=== PATIENT | male | born 1940 | race Caucasian/White ===

== ENCOUNTER 2016-12-08 19:26 | Inpatient (IN) | payer OTHER ==
[2016-12-08] MEDS ORDERED: NS 1,000 ML IV ONE ×2 (19:47→21:03)
--- NOTE | 2016-12-08 19:51 | EDPHY ---
HPI/HX/ROS/PE/MDM Narrative: Chief complaint: Weakness, fall HPI: 76-year-old male who fell at home in the bathroom. Was unable to get up for several hours. He does not recall how he fell. Denies hitting his head. Does remember lying on the floor. His attempted to get him up unable to do so. EMS was called. He is awake and alert. Complaining of generalized weakness. Denies any recent fever chills. No chest pain shortness of breath. No nausea or vomiting. States he has a past medical history of diabetes but has not been taking medications for the last couple months because he felt the were not helping him. Denies other past medical problems. Ill is with his in a single family residence in the [facility]. ROS: 10 point Review of Systems is negative except as noted in the HPI. Physical exam: Gen: Awake, Alert, No Distress HEENT: Nose: no rhinorrhea Eyes: PERRLA, EOMI Mouth: Dry mucosa Neck: Supple, no JVD Chest: nontender, lungs clear to auscultation Heart: S1, S2 normal, no murmur Abd: Soft, non-tender, no guarding Back: no CVA tenderness, no midline tenderness Ext: no edema, non-tender Skin: no rash Neuro: CN II-XII intact, Sensation grossly intact, Strength 5/5 in bilateral upper and lower extremities ED Course: EC sinus rhythm with a rate of 80, normal intervals, no ST or T-wave changes. Patient's laboratory no. He is hypercalcemic, hypernatremic, is acute renal failure in clinically dehydrated. No acute changes in ECG. Urinalysis is suggestive of possible infection however is not dramatic. Cultures will be sent. I have discussed with Dr. Torres, hospitalist. Plan will be for continued hydration. Patient is already receiving a L fluid in the emergency department. Will admit to Dr. Torres service for further care. - Data Points Laboratory Results: Laboratory Results 12/08/16 19:15 12/08/16 19:15 12/08/16 12/08/16 20:10 19:15 WBC 13.56 H 10^3/uL (3.80-9.50) RBC 5.79 10^6/uL (4.40-6.38) Hgb 18.6 H g/dL (13.7-17.5) Hct 55.5 H % (40.0-51.0) MCV 95.9 fL (81.5-99.8) MCH 32.1 pg (27.9-34.1) MCHC 33.5 g/dL (32.4-36.7) RDW 13.2 % (11.5-15.2) Plt Count 317 10^3/uL (150-400) MPV 12.5 H fL (8.7-11.7) Neut % (Auto) 71.9 % (39.3-74.2) Lymph % (Auto) 18.2 % (15.0-45.0) [place]oun % (Auto) 8.0 % (4.5-13.0) Eos % (Auto) 1.3 % (0.6-7.6) Baso % (Auto) 0.4 % (0.3-1.7) Nucleat RBC Rel Count 0.0 % (0.0-0.2) Absolute Neuts (auto) 9.75 H 10^3/uL (1.70-6.50) Absolute Lymphs (auto) 2.47 10^3/uL (1.00-3.00) Absolute Monos (auto) 1.09 H 10^3/uL (0.30-0.80) Absolute Eos (auto) 0.17 10^3/uL (0.03-0.40) Absolute Basos (auto) 0.05 10^3/uL (0.02-0.10) Absolute Nucleated RBC 0.00 10^3/uL (0-0.01) Immature Gran % 0.2 % (0.0-1.1) Immature Gran # 0.03 10^3/uL (0.00-0.10) Sodium 150 H mEq/L (134-144) Potassium 4.2 mEq/L (3.5-5.2) Chloride 101 mEq/L (97-110) Carbon Dioxide 32 H mEq/l (22-31) Anion Gap 17 H mEq/L (8-16) BUN 57 H mg/dL (7-23) Creatinine 2.6 H mg/dL (0.7-1.3) Estimated GFR 24 Glucose 135 H mg/dL (70-100) Calcium 14.0 H* mg/dL (8.5-10.4) Phosphorus 3.4 mg/dL (2.5-4.5) Total Bilirubin 1.0 mg/dL (0.1-1.4) Conjugated Bilirubin 0.5 mg/dL (0.0-0.5) Unconjugated Bilirubin 0.5 mg/dL (0.0-1.1) AST 61 H IU/L (17-59) ALT 67 IU/L (21-72) Alkaline Phosphatase 126 IU/L (38-126) Creatine Kinase 205 IU/L (0-224) Troponin I 0.024 ng/mL (0-0.034) Total Protein 8.5 H g/dL (6.3-8.2) Albumin 4.6 g/dL (3.5-5.0) Lipase 109.0 IU/L (23-300) Urine Color YELLOW Urine Appearance HAZY Urine pH 5.0 (5.0-7.5) Ur Specific Slick 1.019 (1.002-1.030) Urine Protein NEGATIVE (NEGATIVE) Urine Ketones NEGATIVE (NEGATIVE) Urine Blood 1+ H (NEGATIVE) Urine Nitrate NEGATIVE (NEGATIVE) Urine Bilirubin NEGATIVE (NEGATIVE) Urine Urobilinogen NEGATIVE EU (0.2-1.0) Ur Leukocyte Esterase 1+ H (NEGATIVE) Urine RBC 5-10 H /hpf (0-3) Urine WBC 5-10 H /hpf (0-3) Ur Epithelial Cells TRACE /lpf (NONE-1+) Urine Bacteria TRACE H /hpf (NONE SEEN) Hyaline Casts 5-15 /lpf (0-1) Urine Mucus TRACE /lpf (NONE-1+) Urine Glucose NEGATIVE (NEGATIVE) Medications Given: Discontinued Medications Sodium Chloride (Ns) 1,000 mls @ 0 mls/hr IV ONCE ONE PRN Reason: Wide Open Stop: 12/08/16 19:48 Last Admin: 12/08/16 19:58 Dose: 1,000 mls General Time Seen by Provider: 12/08/16 19:38 Initial Vital Signs: Initial Vital Signs Temperature (C) 36.4 C 12/08/16 19:40 Heart Rate 87 12/08/16 19:40 Respiratory Rate 16 12/08/16 19:40 Blood Pressure 153/79 H 12/08/16 19:40 O2 Sat (%) 94 12/08/16 19:40 O2 Delivery Mode Room Air Allergies/Adverse Reactions: aspirin [Aspirin] Allergy (Verified 05/26/10 15:36) Home Medications: Medication Instructions Recorded Antioxidant k 04/12/13 Atorvastatin k 04/12/13 Dha k 04/12/13 Glucosamine Chondrointin k 04/12/13 Lisinopril k 04/12/13 Metformin k 04/12/13 Multivitamin k 04/12/13 Hydrocodone Bit/Acetaminophen 1 tab PO Q4 PRN #20 tab 08/27/13 [Vicodin 5/500] Departure - Departure Disposition: [facility] Acute Clinical Impression: Dehydration, Hypernatremia, Renal failure, Hypercalcemia Condition: Fair
[2016-12-08 19:52] LABS: % IMMATURE GRANULYOCYTES 0.2 % (0.0-1.1); ABSOLUTE IMMATURE GRANULOCYTES 0.03 10^3/uL (0.00-0.10); ADD DIFF? NO; ADD MORPH? NO; ADD SCAN? NO; ATYPICAL LYMPHOCYTE FLAG 0 (0-99); FRAGMENT RBC FLAG 0 (0-99); HEMATOCRIT 55.5 % (40.0-51.0); HEMOGLOBIN 18.6 g/dL (13.7-17.5); LEFT SHIFT FLG 0 (0-99); LIPEMIA HEMOLYSIS FLAG 80 (0-99); MEAN CELL HEMOGLOBIN 32.1 pg (27.9-34.1); MEAN CELL HEMOGLOBIN CONCENTR. 33.5 g/dL (32.4-36.7); MEAN CELL VOLUME 95.9 fL (81.5-99.8); MEAN PLATELET VOLUME 12.5 fL (8.7-11.7); PLATELET CLUMPS FLAG 10 (0-99); PLATELET COUNT 317 10^3/uL (150-400); RED BLOOD CELL COUNT 5.79 10^6/uL (4.40-6.38); RED CELL DISTRIBUTION WIDTH 13.2 % (11.5-15.2)
[2016-12-08 20:00] LABS: ALANINE AMINOTRANSFERASE 67 IU/L (21-72); ALBUMIN 4.6 g/dL (3.5-5.0); ALKALINE PHOSPHATASE 126 IU/L (38-126); ANION GAP 17 mEq/L (8-16); ASPARTATE AMINOTRANSFERASE 61 IU/L (17-59); BILIRUBIN-CONJUGATED 0.5 mg/dL (0.0-0.5); BILIRUBIN-UNCONJUGATED 0.5 mg/dL (0.0-1.1); CARBON DIOXIDE 32 mEq/l (22-31); CHLORIDE 101 mEq/L (97-110); CREATININE 2.6 mg/dL (0.7-1.3); GLOMERULAR FILTRATION RATE 24; GLUCOSE 135 mg/dL (70-100); POTASSIUM 4.2 mEq/L (3.5-5.2); SODIUM 150 mEq/L (134-144); TOTAL PROTEIN 8.5 g/dL (6.3-8.2)
--- NOTE | 2016-12-08 20:00 | CPEKG ---
Heart Rate: 80 RR Interval: 750 P-R Interval: 192 QRSD Interval: 90 QT Interval: 400 QTC Interval: 462 P [place]: 35 QRS [place]: 47 T Wave [place]: 26 EKG Severity - NORMAL ECG - EKG Impression: SINUS RHYTHM Electronically Signed By: Leonora Russell 08-Dec-2016 20:03:44
[2016-12-08 20:11] LABS: TROPONIN I 0.024 ng/mL (0-0.034)
[2016-12-08 20:22] LABS: COLOR YELLOW; LEUKOCYTE ESTERASE,URINE 1+ (NEGATIVE); NITRITE,URINE NEGATIVE (NEGATIVE)
[2016-12-08 20:25] LABS: BACTERIA TRACE /hpf (NONE SEEN); MUCUS TRACE /lpf (NONE-1+)
--- NOTE | 2016-12-08 21:31 | DX ---
PA and lateral chest. Clinical History: fall Comparison Study: None available. Findings: The lungs are clear. No pleural disease identified. Heart size is normal. Visualized osseous structures appear normal. Impression: Negative trauma chest.
--- NOTE | 2016-12-08 22:20 | PDGENHP ---
History and Physical History and Physical: HISTORY AND PHYSICAL ADMISSION NOTE CC:Weakness, found on floor HISTORY: This patient who lives at home with his in house in the [facility] here was found by his on the floor unable to get up. The patient does not recall how he ended up on the floor. He does not specifically think he lost consciousness but does not have any recollection of the event. He does not feel like he injured himself in any way. He is not certain when he fell but gases it was probably somewhere close to 10 o'clock this morning. His apparently tried to get him up but was unable to get him up off the floor. She called for paramedics and he was brought into the emergency room for evaluation He has no headache, neck pain, pain in the shoulders hips or limbs, back pain, abdominal pain, chest pain. He denies recently any fevers shortness of breath cough palpitations lightheadedness syncope seizure-like symptoms nausea or vomiting, bleeding, urinary symptoms, bowel symptoms, joint pains, leg swelling. 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 Chronic gait instability Diabetes mellitus type 2 Hypercholesterolemia FAMILY MEDICAL HISTORY: no pertinent family medical history at this time SOCIAL HISTORY: No use of tobacco or alcohol or street drugs Declines to use a cane or a walker even though he has had previous fall with hospitalization MEDICATIONS: reviewed by our clinical pharmacist and reconciled in the electronic record, I have reviewed the list in the record PHYSICAL EXAMINATION: Vital Signs: stable without fever Outside Machinist Apprentice: sinus rhythm Examination: General: alert, oriented, mildly disoriented and with some decrease in short- term memory, relaxed Skin: warm, dry, good color, no rash No evidence of injury about the head face neck spine her abdomen HEENT: normal Neck: no mass or jvd Resps: relaxed Lungs: clear breath sounds Heart: regular, no murmur Abdomen: soft, nondistended, nontender, +BS, no mass Extremities: no signs of injury at the hip shoulders or more distally in any of the 4 limbs, otherwise no edema, warm No Bleeding or bruising Neurologic: normal speech/language, normal electrical engineering director, no focal weakness IV site: looks normal LABORATORY DATA: multiple abnormalities all likely indicative of dehydration including sodium calcium creatinine hemoglobin his CPK is normal indicating absence of rhabdomyolysis RADIOLOGY STUDIES: Chest x-ray in the ER, my interpretation images: Normal chest x-ray with no pneumonia heart failure fractures or other concerning change ASSESSMENT: # FOUND DOWN ON FLOOR, UNKNOWN MECHANISM OF FALL, POSSIBLE SYNCOPE VERSUS IS GAIT INSTABILITY # SEVERE DEHYDRATION, MOST HAVE BEEN GOING ON SINCE BEFORE HIS FALL THE TIME BETWEEN HIS FALL AND HIS ARRIVAL HERE IS TOO SHORT TO ACCOUNT FOR THIS # ACUTE RENAL FAILURE, HEMODYNAMIC IN NATURE # HYPERCALCEMIA IS LIKELY DUE TO DEHYDRATION BUT WILL REQUIRE REASSESSMENT AND IF IT REMAINS ELEVATED POSSIBLY FURTHER WORKUP # ELEVATED HEMOGLOBIN AND MILD PYURIA ARE LIKELY DUE TO CHANGES FROM HIS SEVERE DEHYDRATION I strongly suspect that he was dehydrated before his fall and i suspect that his dehydration likely contributed to his fall either from orthostasis or otherwise. How he got dehydrated is unclear to me is he denies any nausea vomiting diarrhea or bleeding, but he is somewhat disoriented and the history may be affected by this PLANS: - admission as he will clearly not be safe to go home within 48 hours so inpatient -Vigorous IV hydration -Follow for correction of laboratory abnormalities and consider further evaluation for any that no cardiac - fall risk precautions, PT and OT eval -DVT prophylaxis I have reviewed the patient's case in detail with Dr. Elver Baig I have reviewed the patient's past medical records as part of this assessment, including records from several previous ER visits here
[2016-12-08] MEDS ORDERED: NS 1,000 ML IV SCH (22:30)
[2016-12-08] MEDS ORDERED: ACETAMINOPHEN 325 MG TAB PO PRN (22:30)
[2016-12-08] MEDS ORDERED: ONDANSETRON 4 MG/2 ML VIAL IVP PRN (22:30)
[2016-12-09 05:27] LABS: % IMMATURE GRANULYOCYTES 0.3 % (0.0-1.1); ABSOLUTE IMMATURE GRANULOCYTES 0.03 10^3/uL (0.00-0.10); ADD DIFF? NO; ADD MORPH? NO; ADD SCAN? NO; ATYPICAL LYMPHOCYTE FLAG 0 (0-99); FRAGMENT RBC FLAG 0 (0-99); HEMATOCRIT 45.6 % (40.0-51.0); HEMOGLOBIN 15.5 g/dL (13.7-17.5); LEFT SHIFT FLG 0 (0-99); LIPEMIA HEMOLYSIS FLAG 90 (0-99); MEAN CELL HEMOGLOBIN 32.3 pg (27.9-34.1); MEAN PLATELET VOLUME 12.3 fL (8.7-11.7); PLATELET CLUMPS FLAG 10 (0-99); PLATELET COUNT 246 10^3/uL (150-400); RED CELL DISTRIBUTION WIDTH 13.1 % (11.5-15.2)
[2016-12-09 05:41] LABS: ALANINE AMINOTRANSFERASE 65 IU/L (21-72); ALBUMIN 3.2 g/dL (3.5-5.0); ALKALINE PHOSPHATASE 89 IU/L (38-126); ANION GAP 9 mEq/L (8-16); ASPARTATE AMINOTRANSFERASE 48 IU/L (17-59); BILIRUBIN,TOTAL 0.7 mg/dL (0.1-1.4); CARBON DIOXIDE 27 mEq/l (22-31); CHLORIDE 112 mEq/L (97-110); CREATININE 2.2 mg/dL (0.7-1.3); GLOMERULAR FILTRATION RATE 29; GLUCOSE 122 mg/dL (70-100); SODIUM 148 mEq/L (134-144); TOTAL PROTEIN 6.1 g/dL (6.3-8.2)
[2016-12-09] MEDS ORDERED: ENOXAPARIN 40 MG/0.4 ML SYR SC SCH (09:00)
--- NOTE | 2016-12-09 09:38 | HOSPPROG ---
Hospitalist Progress Note Assessment/Plan: 68-year-old male who according to his has been declining over the last couple months without more weight loss and perhaps some confusion was found down * hypercalcemia * significant and probably contributing to his presentation * will check PTH, SPEP, PSA * continue hydration * acute renal failure/ possibly chronic * will get renal ultrasound * confusion * suspect baseline dementia worsening in the hospital * history of hypertension * holding erin *? type 2 diabetes * hold metformin * DVT prophylaxis * heparin Subjective: more confused this morning. Fell this morning Objective: Vital Signs Temp Pulse Resp BP Pulse Ox 36.5 C 89 16 124/69 H 96 12/09/16 07:12 12/09/16 07:12 12/09/16 07:12 12/09/16 07:12 12/09/16 07:12 Laboratory Results 12/09/16 04:23 12/09/16 04:23 12/08/16 12/09/16 12/10/16 05:59 05:59 05:59 Intake Total 2100 941 Output Total 100 Balance 2000 941 - Physical Exam Constitutional: no apparent distress, appears nourished, not in pain Eyes: anicteric sclera, EOMI Ears, Nose, Mouth, Throat: moist mucous membranes, hearing normal Cardiovascular: regular rate and rhythym, no murmur, rub, or gallop Respiratory: no respiratory distress Gastrointestinal: normoactive bowel sounds, soft, non-tender abdomen, no palpable masses Neurologic: No AAOx3 Psychiatric: interacting appropriately, not anxious, not encephalopathic, thought process linear ICD10 Worksheet Patient Problems: Problems Problem Status Diagnosed Dehydration Acute Hypercalcemia Acute Hypernatremia Acute Renal failure Acute
[2016-12-09 09:55] LABS: PTH INTACT NO MINERALS 17.8 pg/ml (10.8-79.4)
[2016-12-09] MEDS: ATORVASTATIN CALCIUM 40 MG TAB PO SCH (10:58)
[2016-12-09] MEDS: 1/2 NS 1,000 ML IV SCH ×2 (11:01→14:31)
--- NOTE | 2016-12-09 11:50 | US ---
Renal sonogram, complete. History: Acute renal failure. Findings: The right kidney measures 9.8 x 4.7 x 5 cm without hydronephrosis or mass. Left kidney rickie ures 10 x 4.5 x 5.4 cm also without hydronephrosis or mass. Urinary bladder is moderately distended at 87.5 mL. The prostate appears enlarged, measuring 6.1 x 6. 2 x 4.9 cm, estimating a 97 cc gland. Impression: 1. Enlargement of the prostate. 2. No evidence of hydronephrosis.
[2016-12-09 12:56] LABS: IONIZED CALCIUM 1.63 MMOL/L (1.12-1.30)
[2016-12-09] MEDS: HEPARIN 5,000 UNIT/0.5 ML SYR SC SCH ×2 (16:27→19:39)
[2016-12-09] MEDS ORDERED: OLANZapine 2.5 MG TAB PO ONE (22:56)
[2016-12-10] MEDS: 1/2 NS 1,000 ML IV SCH (00:33)
[2016-12-10] MEDS ORDERED: OLANZapine 2.5 MG TAB PO ONE (03:30)
[2016-12-10 04:38] LABS: IONIZED CALCIUM 1.29 MMOL/L (1.12-1.30)
[2016-12-10 04:57] LABS: % IMMATURE GRANULYOCYTES 0.3 % (0.0-1.1); ABSOLUTE IMMATURE GRANULOCYTES 0.02 10^3/uL (0.00-0.10); ADD DIFF? NO; ADD MORPH? NO; ADD SCAN? NO; ATYPICAL LYMPHOCYTE FLAG 10 (0-99); FRAGMENT RBC FLAG 0 (0-99); HEMATOCRIT 37.8 % (40.0-51.0); HEMOGLOBIN 12.9 g/dL (13.7-17.5); LEFT SHIFT FLG 0 (0-99); LIPEMIA HEMOLYSIS FLAG 90 (0-99); MEAN CELL HEMOGLOBIN 32.3 pg (27.9-34.1); MEAN CELL HEMOGLOBIN CONCENTR. 34.1 g/dL (32.4-36.7); MEAN CELL VOLUME 94.7 fL (81.5-99.8); PLATELET CLUMPS FLAG 40 (0-99); PLATELET COUNT 197 10^3/uL (150-400); RED BLOOD CELL COUNT 3.99 10^6/uL (4.40-6.38)
[2016-12-10 05:04] LABS: ALANINE AMINOTRANSFERASE 76 IU/L (21-72); ALBUMIN 2.7 g/dL (3.5-5.0); ALKALINE PHOSPHATASE 76 IU/L (38-126); ANION GAP 6 mEq/L (8-16); ASPARTATE AMINOTRANSFERASE 44 IU/L (17-59); BILIRUBIN,TOTAL 0.7 mg/dL (0.1-1.4); CALCIUM 9.8 mg/dL (8.5-10.4); CARBON DIOXIDE 26 mEq/l (22-31); CHLORIDE 111 mEq/L (97-110); GLOMERULAR FILTRATION RATE 32; GLUCOSE 97 mg/dL (70-100); POTASSIUM 3.6 mEq/L (3.5-5.2); SODIUM 143 mEq/L (134-144); TOTAL PROTEIN 5.3 g/dL (6.3-8.2)
[2016-12-10] MEDS: HEPARIN 5,000 UNIT/0.5 ML SYR SC SCH ×3 (05:59→20:45)
--- NOTE | 2016-12-10 08:18 | WOCRNPDOC ---
WOCRN Advanced Assessment Note - Skin Integrity Problem, Advanced Assess Buttock Dermatitis Dressing Type: Open to Air Exudate Amount: None Ryann Wound Tissue: Blanching, Erythema Wound Bed Color: [place] Wound Bed Constitution: Smooth Tissue Site Measurement - Head-to-Toe Length X Width X Depth (cm): 1x0.5x0.1 (right buttock) Skin Integrity Problem Comment: Friction injury mixed with dermatitis. Dry flaky skin. No pressure injury. Encourage patient to lift when transferring. Apply 50/50 mix of calazime and dimethicone lotion. Thai FLOWERS in room for care.
[2016-12-10] MEDS: ATORVASTATIN CALCIUM 40 MG TAB PO SCH (09:25)
--- NOTE | 2016-12-10 14:29 | CT ---
CT Head Without Contrast History: Confusion, gait instability. Comparison: None available. Technique: Axial unenhanced images were obtained from the vertex through the skull base. Dose reduct ion techniques were utilized. 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 There i s mild diffuse cerebral atrophy with scattered periventricular and subcortical low attenuation, sugge sting chronic microvascular ischemic gliosis. No intracranial hemorrhage is identified. No extraaxia l fluid collections are identified. There is no mass, mass effect or evidence of acute infarct. Athe rosclerotic calcification is present in the distal internal carotid arteries. Moderate mucous membran e thickening is present in the left maxillary sinus with mild mucous membrane thickening in the ethmo id sinuses. The mastoid air cells are clear. Right parietal calvarial defect suggests prior craniotom y. Impression: 1. No acute intracranial findings. If symptoms persist and clinical suspicion warrants, consider MRI. 2. Right frontal encephalomalacia 3. Diffuse cerebral atrophy with scattered periventricular and subcortical low attenuation consistent with chronic microvascular ischemic gliosis.
--- NOTE | 2016-12-10 14:30 | HOSPPROG ---
Hospitalist Progress Note Assessment/Plan: 76 yo M with limited known pmh presenting with fall and confusion # fall/found down: unclear mechanism of fall but on evaluation patient very weak and confused, has essentially no postural tone in the trunk. Possibly related to syncope versus mechanical fall. # generalized weakness: as above, patient essentially unable to hold his trunk up. Unclear baseline but has been living at home so presumably at least able to do his ADLs. Will w/u with head CT, check b12, tsh, rpr and random cortisol in am. # hypercalcemia: in setting of above, unclear if just related to hypovolemia but seems out of proportion to that. PTH in the low-normal range, PTHrP pending. Will check Vitamin D and metabolites level as well. Spep sent. # hypernatremia: in setting of volume depletion, resolved with IVF # vanessa: with unknown baseline creatinine and only minimal improvement since admission but has been on 1/2 ns. changing fluids to ns and will check urine studies and post void residual .Holding lisinopril and metformin # htn: bp has been essentially wnl despite holding lisinopril, monitoring # dm2: ssi, holding metformin # dispo: IP status, will need snf Patient new to my care. Old records reviewed but not much found even on [facility]. Reviewed care plan with case mgmt. Subjective: no significant overnight events, patient very weak, essentially unable to even hold his trunk upright Objective: Vital Signs Temp Pulse Resp BP Pulse Ox 36.5 C 71 18 119/69 94 12/10/16 08:00 12/10/16 08:00 12/10/16 08:00 12/10/16 08:00 12/10/16 08:00 Laboratory Results 12/10/16 04:27 12/10/16 04:27 12/09/16 12/10/16 12/11/16 05:59 05:59 05:59 Intake Total 2099 2040 340 Output Total 100 50 Balance 1999 2040 290 awake confused anicteric tooth paste on tongue and cheeks, poor dentition rrr no mrg cta with dec bs at bases soft nt nd no cce warm dry well perfused scattered ecchymoses oriented to self, tangential, generalized weakness most pronounced in truncal region - Time Spent With Patient Time Spent with Patient: greater than 35 minutes Time Spent with Patient: Greater than 35 minutes spent on this patients care, greater than 50% of time spent counseling, educating, and coordinating care regarding the above mentioned plan. ICD10 Worksheet Patient Problems: Problems Problem Status Diagnosed Dehydration Acute Hypercalcemia Acute Hypernatremia Acute Renal failure Acute
[2016-12-10] MEDS: NS 1,000 ML IV SCH (15:46)
[2016-12-10] MEDS: OLANZapine DISINTEGR 5 MG TAB PO PRN (20:46)
[2016-12-11 06:19] LABS: ANION GAP 9 mEq/L (8-16); CALCIUM 8.9 mg/dL (8.5-10.4); CARBON DIOXIDE 25 mEq/l (22-31); CHLORIDE 111 mEq/L (97-110); CREATININE 1.8 mg/dL (0.7-1.3); GLOMERULAR FILTRATION RATE 37; GLUCOSE 102 mg/dL (70-100); MAGNESIUM 1.8 mg/dL (1.6-2.3); POTASSIUM 3.7 mEq/L (3.5-5.2); SODIUM 145 mEq/L (134-144)
[2016-12-11 06:53] LABS: % IMMATURE GRANULYOCYTES 0.9 % (0.0-1.1); ADD DIFF? NO; ADD MORPH? NO; ADD SCAN? NO; ATYPICAL LYMPHOCYTE FLAG 0 (0-99); FRAGMENT RBC FLAG 30 (0-99); HEMATOCRIT 40.8 % (40.0-51.0); LEFT SHIFT FLG 10 (0-99); LIPEMIA HEMOLYSIS FLAG 90 (0-99); MEAN CELL HEMOGLOBIN 31.8 pg (27.9-34.1); MEAN CELL HEMOGLOBIN CONCENTR. 34.3 g/dL (32.4-36.7); MEAN CELL VOLUME 92.7 fL (81.5-99.8); MEAN PLATELET VOLUME 12.4 fL (8.7-11.7); PLATELET CLUMPS FLAG 50 (0-99); PLATELET COUNT 213 10^3/uL (150-400); RED CELL DISTRIBUTION WIDTH 12.9 % (11.5-15.2)
[2016-12-11] MEDS: HEPARIN 5,000 UNIT/0.5 ML SYR SC SCH ×3 (07:12→21:39)
[2016-12-11 08:13] LABS: VITAMIN D 25-HYDROXY TOTAL 32.8 ng/mL (30-100)
[2016-12-11 08:26] LABS: CORTISOL-AM 14.2 ug/dL (4.5-22.7)
[2016-12-11] MEDS: ATORVASTATIN CALCIUM 40 MG TAB PO SCH (08:51)
--- NOTE | 2016-12-11 15:12 | HOSPPROG ---
Hospitalist Progress Note Assessment/Plan: 76 yo M with limited known pmh presenting with fall and confusion # fall/found down: unclear mechanism of fall but on evaluation patient very weak and confused # generalized weakness: as above, patient essentially unable to hold his trunk up. Unclear baseline but has been living at home so presumably at least able to do his ADLs. Head ct personally reviewed with no acute findings, b12 wnl, tsh wnl, cortisol wnl, rpr negative. Unclear baseline, patients also very confused and seems deconditioned etc as well. # hypercalcemia: in setting of above, most likley related to hypovolemia and vanessa. PTH in the low-normal range, PTHrP pending. vitamin D wnl, spep wnl. # hypernatremia: in setting of volume depletion, resolved with IVF # vanessa: with unknown baseline creatinine and only minimal improvement since admission but has been on 1/2 ns. changing fluids to ns and will check urine studies and post void residual . Holding lisinopril and metformin # htn: bp has been essentially wnl despite holding lisinopril, monitoring # dm2: ssi, holding metformin # dispo: IP status, will need snf Reviewed care plan with case mgmt. Subjective: no significant overnight events, patient remains very weak Objective: Vital Signs Temp Pulse Resp BP Pulse Ox 36.9 C 80 18 150/76 H 94 12/11/16 07:42 12/11/16 07:42 12/11/16 07:42 12/11/16 07:42 12/11/16 07:42 Laboratory Results 12/11/16 04:30 12/11/16 04:30 12/10/16 12/11/16 12/12/16 05:59 05:59 05:59 Intake Total 2041 1492 Output Total 600 Balance 2041 892 awake confused anicteric tooth paste on tongue and cheeks, poor dentition rrr no mrg cta with dec bs at bases soft nt nd no cce warm dry well perfused scattered ecchymoses oriented to self, tangential, generalized weakness most pronounced in truncal region - Time Spent With Patient Time Spent with Patient: greater than 35 minutes Time Spent with Patient: Greater than 35 minutes spent on this patients care, greater than 50% of time spent counseling, educating, and coordinating care regarding the above mentioned plan. ICD10 Worksheet Patient Problems: Problems Problem Status Onset Dehydration Acute Hypercalcemia Acute Hypernatremia Acute Renal failure Acute
[2016-12-11] MEDS: NS 1,000 ML IV SCH (16:07)
[2016-12-12] MEDS: NS 1,000 ML IV SCH ×2 (02:18→21:06)
[2016-12-12 05:43] LABS: % IMMATURE GRANULYOCYTES 0.3 % (0.0-1.1); ABSOLUTE IMMATURE GRANULOCYTES 0.03 10^3/uL (0.00-0.10); ADD DIFF? NO; ADD MORPH? NO; ADD SCAN? NO; ATYPICAL LYMPHOCYTE FLAG 0 (0-99); FRAGMENT RBC FLAG 0 (0-99); HEMATOCRIT 41.1 % (40.0-51.0); LEFT SHIFT FLG 0 (0-99); LIPEMIA HEMOLYSIS FLAG 90 (0-99); MEAN CELL HEMOGLOBIN 32.4 pg (27.9-34.1); MEAN CELL HEMOGLOBIN CONCENTR. 34.1 g/dL (32.4-36.7); MEAN CELL VOLUME 95.1 fL (81.5-99.8); PLATELET CLUMPS FLAG 80 (0-99); PLATELET COUNT 209 10^3/uL (150-400); RED BLOOD CELL COUNT 4.32 10^6/uL (4.40-6.38); RED CELL DISTRIBUTION WIDTH 13.1 % (11.5-15.2)
[2016-12-12 05:57] LABS: ANION GAP 9 mEq/L (8-16); CALCIUM 8.2 mg/dL (8.5-10.4); CARBON DIOXIDE 22 mEq/l (22-31); CHLORIDE 112 mEq/L (97-110); CREATININE 1.5 mg/dL (0.7-1.3); GLOMERULAR FILTRATION RATE 45; GLUCOSE 96 mg/dL (70-100); MAGNESIUM 1.9 mg/dL (1.6-2.3); POTASSIUM 3.3 mEq/L (3.5-5.2); SODIUM 143 mEq/L (134-144)
[2016-12-12] MEDS: HEPARIN 5,000 UNIT/0.5 ML SYR SC SCH ×3 (06:24→21:05)
[2016-12-12] MEDS: ATORVASTATIN CALCIUM 40 MG TAB PO SCH (08:33)
--- NOTE | 2016-12-12 14:42 | HOSPPROG ---
Hospitalist Progress Note Assessment/Plan: 76 yo M with limited known pmh presenting with fall and confusion # fall/found down: unclear mechanism of fall but on evaluation patient very weak and confused # generalized weakness: improving, no clear etiology for decline but seems like this is more of a subacute decline rather than something acute. sp hydration and correction of electrolytes he is now definitely stronger. will dc to snf. # acute encephalopathy: likely toxic metabolic encephalopathy in setting of vanessa/ volume depletion/electrolyte abnormalities. Baseline unknown, but today patient is now oriented and appropriate so tangential thinking and poor cognition of prior days likely not baseline # hypercalcemia: in setting of above, most likley related to hypovolemia and vanessa. PTH in the low-normal range, PTHrP pending. vitamin D wnl, spep wnl. # hypernatremia: in setting of volume depletion, resolved with IVF # vanessa: Holding lisinopril and metformin, continues to improve. Baseline unknown but may be some component of ckd as well. # htn: bp has been essentially wnl despite holding lisinopril, monitoring # dm2: ssi, holding metformin # dispo: IP status, will need snf Reviewed care plan with case mgmt. Subjective: no significant overnight events, patient has been able to get up and walk today, Objective: Vital Signs Temp Pulse Resp BP Pulse Ox 36.3 C 80 18 136/80 H 94 12/12/16 08:00 12/12/16 08:00 12/12/16 08:00 12/12/16 08:00 12/12/16 08:00 Laboratory Results 12/12/16 04:45 12/12/16 04:45 12/11/16 12/12/16 12/13/16 05:59 05:59 05:59 Intake Total 1492 2287 Output Total 600 2075 Balance 892 212 awake oriented interactive anicteric op clear rrr no mrg cta with dec bs at bases soft nt nd no cce warm dry well perfused scattered ecchymoses oriented appropriate, generalized weakness that has improved ICD10 Worksheet Patient Problems: Problems Problem Status Onset Dehydration Acute Hypercalcemia Acute Hypernatremia Acute Renal failure Acute
--- NOTE | 2016-12-12 19:59 | GCON ---
[f rep st] CONSULTATION NEUROLOGY CONSULTATION REFERRING PHYSICIAN: Nu Garcia MD HISTORY OF PRESENT ILLNESS: The patient is a 76-year-old gentleman whom I am asked to see in neurol ogic consultation regarding issues of subacute decline in cognition, as well as general functional s tatus and gait deterioration. The history from the patient is unreliable. According to the informa tion available, he lives with his and was found on the floor, unable to get up on the date of a dmission, on December 08. He did not know if he lost consciousness or not and does not really rec ollect what happened. He did not have a specific injury documented. Dr. Vincent Torres evaluated him, and at the time he has saw him, documented nothing that suggested acute cardiac event or seizure or stroke. He was having some mild disorientation, but we did not know his true baseline. He was hav ing relatively normal speech and cranial nerve function and did not have focal weakness. CK was unr emarkable. Workup with initial chest x-ray did not show any acute pathology. He was thought to be dehydrated w ith his creatinine initially 2.6, a BUN of 57. Bicarbonate was 32. He had some hypercalcemia. He subsequently had some improvements in the renal function with hydration. Calcium has normalized. U rinalysis was unremarkable, except for trace bacteria. RPR nonreactive. He had a head CT obtained on the , showing some right frontal encephalomalacia of unknown source, but no evidence of acute findings. He had diffuse cerebral atrophy and white matter changes. During hospitalization, he has had variable degrees of orientation. He is not generally acutely tristin tated. His mobility is clearly impaired and Dr. Garcia has been following him for the last 3 day s, and has recommended neurology consult, in that it is clear he is not going to return to his home in the short term given this degree of debility from a cognitive and physical degree. No specific t remors have been documented. The patient has not had fever, chills, nausea, vomiting, or diarrhea. REVIEW OF SYSTEMS: Otherwise, a 10-point review of systems is unrevealing. 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 FAMILY HISTORY: Not currently available for any details. SOCIAL HISTORY: No smoking or alcohol. He said lately sometimes he needed to use a walker, but according to the admission history and physi selam, he was declining the use this despite previous falls with hospitalization. MEDICATIONS: Lipitor 40 mg daily, subcu heparin, Zyprexa which is new since hospitalization to help with sleep as needed, Zofran as needed. Prior to hospitalization, he was on metformin and Lipitor and lisinopril. ALLERGIES: Aspirin. PHYSICAL EXAMINATION: VITAL SIGNS: The blood pressure is 125/69, pulse of 80, respirations 18, tem perature 37.0. GENERAL: He is an elderly man lying in the bed, in no acute distress. HEENT: Eyes are clear. NECK: Supple with no bruits or masses. CARDIAC: Regular rate and rhythm. No murmur. NEUROLOGIC EXAMINATION: He is a little lethargic because he is trying to sleep, but was able to par ticipate partly in the examination. He is oriented to the month and the year. When asked where he was, he said [place]. He has decreased recent memory, but preserved remote memory. Concentration and attention are currently reduced in association with his relatively decreased state of arousal a nd that he simply seems to be sleepy. General fund of knowledge is reduced. He is not able to reli ably participate in a more detailed mental status exam, but he is denying hallucinations, delusions, and is not expressing any bizarre thoughts, and denies feeling depressed or anxious. Pupils 2 mm a nd reactive. Extraocular movements are intact. Normal facial sensation and strength. Palate eleva jori symmetrically. Tongue protrudes midline. Hearing is preserved. Motor examination reveals a ge neral weakness in the proximal muscles in the 4/5 range. No focal muscular atrophy. No abnormal mo vements of significance. He certainly does not have any resting tremor. He is a little bit tremulo us in the upper extremities, but that is with use only. He is not ataxic in the upper extremities. I did not have him try to walk with me currently. Reflexes 1+. Sensation is preserved. IMPRESSION: I agree that this patient most likely has more of a subacute decline, likely on a chron ic gait disorder, which could be multifactorial and the encephalopathy certainly could be related to his metabolic state. We do not find evidence of acute stroke. There may be old stroke based on th e fact that the head CT showed some encephalomalacia in the right frontal region, but we do not clin ically know about a specific stroke. He has microvascular disease and atrophy. He likely has a bas kamila cognitive disorder, if not early dementia. The encephalopathy is getting a little bit better with correction of his metabolic dysfunction. I would not describe him as having Parkinson disease. At this point, it is not the appropriate setting for a definitive diagnosis, but outpatient followup would be appropriate for monitoring the cognitive status and determining if he really would meet cr iteria for dementia. There is just not enough detailed information at the moment to make any formal diagnosis. We will sign off, but he can follow up with me as an outpatient, or please contact us for any questi ons further during this hospitalization if needed. /[id number]/MODL
[2016-12-13] MEDS: OLANZapine DISINTEGR 5 MG TAB PO PRN (03:23)
[2016-12-13 04:55] LABS: % IMMATURE GRANULYOCYTES 0.4 % (0.0-1.1); ABSOLUTE IMMATURE GRANULOCYTES 0.03 10^3/uL (0.00-0.10); ADD DIFF? NO; ADD MORPH? NO; ADD SCAN? NO; ATYPICAL LYMPHOCYTE FLAG 0 (0-99); FRAGMENT RBC FLAG 0 (0-99); HEMATOCRIT 35.7 % (40.0-51.0); HEMOGLOBIN 12.3 g/dL (13.7-17.5); LEFT SHIFT FLG 0 (0-99); LIPEMIA HEMOLYSIS FLAG 90 (0-99); MEAN CELL HEMOGLOBIN 31.9 pg (27.9-34.1); MEAN CELL HEMOGLOBIN CONCENTR. 34.5 g/dL (32.4-36.7); MEAN CELL VOLUME 92.7 fL (81.5-99.8); MEAN PLATELET VOLUME 11.8 fL (8.7-11.7); PLATELET CLUMPS FLAG 0 (0-99); PLATELET COUNT 193 10^3/uL (150-400); RED BLOOD CELL COUNT 3.85 10^6/uL (4.40-6.38); RED CELL DISTRIBUTION WIDTH 13.2 % (11.5-15.2)
[2016-12-13] MEDS: HEPARIN 5,000 UNIT/0.5 ML SYR SC SCH ×3 (04:59→20:20)
[2016-12-13 05:10] LABS: ANION GAP 7 mEq/L (8-16); CALCIUM 7.1 mg/dL (8.5-10.4); CARBON DIOXIDE 22 mEq/l (22-31); CHLORIDE 115 mEq/L (97-110); CREATININE 1.3 mg/dL (0.7-1.3); GLOMERULAR FILTRATION RATE 53; GLUCOSE 124 mg/dL (70-100); MAGNESIUM 1.7 mg/dL (1.6-2.3); POTASSIUM 3.4 mEq/L (3.5-5.2); SODIUM 144 mEq/L (134-144)
[2016-12-13] MEDS: NS 1,000 ML IV SCH (06:43)
[2016-12-13] MEDS: D5W 1/2 NS W/ 20 KCl/L 1,000 ML IV SCH ×2 (08:00→19:02)
[2016-12-13] MEDS: ATORVASTATIN CALCIUM 40 MG TAB PO SCH (09:54)
--- NOTE | 2016-12-13 17:14 | HOSPPROG ---
Hospitalist Progress Note Assessment/Plan: Assessment/Plan: 76 yo M p/w acute encephalopathy and fall # fall/found down: unclear mechanism of fall but on evaluation patient very weak and confused # generalized weakness: improving, no clear etiology for decline but seems like this is more of a subacute decline rather than something acute - appreciate neurology consultation, no clear e/o CVA to explain his gait instability # acute encephalopathy: evidenced by global brain dysfunction characterized as confusion, somnolence, unresponsiveness, likely metabolic in setting of vanessa/ volume depletion/electrolyte abnormalities # hypercalcemia: acute, in setting of above, most likley related to hypovolemia and vanessa - PTH in the low-normal range, PTHrP pending. vitamin D wnl, spep wnl # hypernatremia: acute, in setting of volume depletion, resolved with IVF # vanessa: likely 2/2 hypovolemia, Cr peaked 2.6, holding lisinopril and metformin, continues to improve # htn: chronic, cont off lisinopril # dm2: chronic, ssi, holding metformin - initiate low dose lantus diet. diabetic ppx. high risk, hep sc code. full dispo. ADD 12/14 to SNF, pending stabilization of renal fxn Subjective: Patient reports that he is not in any pain, reports that he is physically weak and a 2 person assist, he is amenable to going to shelter facility Objective: Vital Signs Temp Pulse Resp BP Pulse Ox 36.6 C 96 16 103/52 L 95 12/13/16 14:57 12/13/16 14:57 12/13/16 14:57 12/13/16 14:57 12/13/16 14:57 Laboratory Results 12/13/16 04:29 12/13/16 04:29 12/12/16 12/13/16 12/14/16 05:59 05:59 05:59 Intake Total 2287 200 Output Total 2075 1250 400 Balance 212 -1050 -400 - Pending Discharge Pending Discharge Within 24 Hours: Yes Pending Discharge Date: 12/14/16 Pending Discharge Time: 11:00 - Physical Exam Constitutional: no apparent distress, not in pain, chronically ill appearing, No uncomfortable Cardiovascular: systolic murmur, No irregularly irregular, No tachycardia (106 at the sternum), No edema Respiratory: inspiratory crackles (Bilateral bases), No reduced air movement, No expiratory wheeze, No bronchial breath sounds Gastrointestinal: normoactive bowel sounds, soft, non-tender abdomen, no palpable masses Neurologic: AAOx3, sensation intact bilaterally, weakness (4/5 motor strength bilateral lower extremity) Psychiatric: interacting appropriately, not anxious, not encephalopathic, thought process linear ICD10 Worksheet Patient Problems: Problems Problem Status Onset Dehydration Acute Hypernatremia Acute Renal failure Acute Hypercalcemia Acute
[2016-12-14 04:55] LABS: % IMMATURE GRANULYOCYTES 0.4 % (0.0-1.1); ABSOLUTE IMMATURE GRANULOCYTES 0.03 10^3/uL (0.00-0.10); ADD DIFF? NO; ADD MORPH? NO; ADD SCAN? NO; ATYPICAL LYMPHOCYTE FLAG 0 (0-99); FRAGMENT RBC FLAG 0 (0-99); HEMATOCRIT 34.7 % (40.0-51.0); LEFT SHIFT FLG 0 (0-99); LIPEMIA HEMOLYSIS FLAG 90 (0-99); MEAN CELL HEMOGLOBIN CONCENTR. 34.6 g/dL (32.4-36.7); MEAN CELL VOLUME 92.5 fL (81.5-99.8); MEAN PLATELET VOLUME 11.8 fL (8.7-11.7); PLATELET CLUMPS FLAG 0 (0-99); PLATELET COUNT 210 10^3/uL (150-400); RED BLOOD CELL COUNT 3.75 10^6/uL (4.40-6.38); RED CELL DISTRIBUTION WIDTH 13.3 % (11.5-15.2)
[2016-12-14 05:29] LABS: ANION GAP 5 mEq/L (8-16); CALCIUM 6.7 mg/dL (8.5-10.4); CARBON DIOXIDE 19 mEq/l (22-31); CHLORIDE 116 mEq/L (97-110); CREATININE 1.3 mg/dL (0.7-1.3); GLOMERULAR FILTRATION RATE 53; GLUCOSE 144 mg/dL (70-100); POTASSIUM 3.6 mEq/L (3.5-5.2); SODIUM 140 mEq/L (134-144)
[2016-12-14] MEDS: HEPARIN 5,000 UNIT/0.5 ML SYR SC SCH ×2 (05:45→14:18)
[2016-12-14] MEDS: D5W 1/2 NS W/ 20 KCl/L 1,000 ML IV SCH (05:46)
[2016-12-14 07:54] VITALS: BP 124/64; PULSE 70; RESP 18; TEMP 98; O2SAT 96
[2016-12-14] MEDS: ATORVASTATIN CALCIUM 40 MG TAB PO SCH (08:49)
--- NOTE | 2016-12-14 10:31 | PDDCSUM ---
Discharge Summary Discharge Summary: DISCHARGE SUMMARY FOLLOW-UP ITEMS: Outpatient creatinine BUN and lytes Establish primary care after discharge DATE OF ADMISSION: DATE OF DISCHARGE: 12/14/2016 DISCHARGE DIAGNOSES: 1. Acute fall 2. Acute generalized weakness 3. Acute encephalopathy 4. Acute hypercalcemia 5. Acute hyponatremia 6. Acute kidney injury 7. Chronic hypertension 7. Chronic diabetes mellitus type 2 CONSULTATIONS: Neurology by Dr. Caballero PROCEDURES / IMAGING: None CHIEF COMPLAINT: Found down SUBJECTIVE: Patient is feeling well at time of discharge, he reports that he has low energy PHYSICAL EXAM ON DISCHARGE: Systolic blood pressure is 140, heart rate 70, afebrile overnight, satting well on room air, urine output 1.2 L over the last 24 hours, alert awake oriented x3 , good inspiratory and expiratory air movement LABS ON DISCHARGE: Creatinine 1.3, potassium 3.6, hemoglobin A1c pending at time of discharge HOSPITAL COURSE BY PROBLEM: 1. Acute fall. Unclear mechanism but patient did not have any evidence of trauma. Is most likely sustained in the setting of acute encephalopathy and dehydration. Patient requires significant assistance as will be outlined below. 2. Acute generalized weakness. Patient has no clear etiology for his recent decline but it may be more subacute and in the setting worsening renal function. Patient reports that he has low energy and we have recommended penitentiary facility for rehabilitation. Patient is currently a 2 person assist. 3. Acute encephalopathy. Evidenced by global brain dysfunction characterized as confusion, somnolence, unresponsiveness, acute change from his baseline, most likely metabolic in the setting of acute kidney injury and volume depletion with electrolyte abnormalities. Patient's mental status is at his baseline at time of discharge. The patient has been evaluated by Neurology and they do not believe that patient sustained an acute CVA. 4. Acute hypercalcemia. This occurred in the setting of hypovolemia and acute kidney injury. Of note patient's PTH was in the low-normal range his vitamin-D was within normal limits and his SPEP was normal. His hypercalcemia has improved with IV fluids. 5. Acute hyponatremia. Most likely secondary to poor access to free water and volume depletion. This resolved with IV fluids. 6. Acute kidney injury. Most likely secondary to hypovolemia with a creatinine peak at 2.6. He may have also had some renal hypo perfusion in the setting of ODALYS-inhibitor and this has been discontinued. Patient's discharge creatinine level is 1.3 and it is possible that the patient may have an element of chronic kidney disease. I recommend outpatient creatinine BUN and lytes after discharge. If patient's creatinine level remains elevated, would recommend outpatient nephrology referral for outpatient chronic kidney disease management. 7. Chronic hypertension. Patient's systolic blood pressure has been ranging between 100 and 140, not necessitating antihypertensive medications. Would not recommend any medications at time of discharge. 8. Chronic diabetes mellitus type 2. Patient's metformin has been held given his renal impairment and risk for lactic acidosis. Patient's hemoglobin A1c is pending at time of discharge but his fasting blood glucose levels have ranged between 90 and 140. At the present time, I would not recommend glycemic agents and 1 can be considered in the outpatient setting depending on where his creatinine level settles out. DISCHARGE MEDICATIONS: Please see official discharge medication reconciliation sheet in chart , lisinopril and metformin both been discontinued. DISCHARGE INSTRUCTIONS: Patient should have repeat creatinine BUN and lytes as an outpatient and if his creatinine level remains elevated, would recommend outpatient nephrology referral for chronic kidney disease management. TIME SPENT: Greater than 30 minutes were spent on direct patient care, as well as discharge planning and preparation.
--- NOTE | 2016-12-14 10:32 | PDIAF ---
- Diagnosis Diagnosis: Acute Encephalopathy, MILO, HTN, DM2 Code Status: Full Code - Medication Management Discharge Medications: Medications to Continue on Transfer Atorvastatin Calcium [Lipitor 40 mg (*)] 40 mg PO DAILY 12/08/16 [Last Taken ] Herbals/Supplements -Info Only 1 ea PO DAILY 12/08/16 [Last Taken Unknown] Acetaminophen [Tylenol 325mg (*)] 650 mg PO Q4HRS PRN #0 tab 12/14/16 [Last Taken Unknown] Mcc Antibiotics: NA Discharge Medications: Refer to the Discharge Home Medication list for PRN reason. PICC Care - Routine: N/A - Orders Services needed: Registered Nurse, Physical Therapy, Occupational Therapy Oxygen: NA Diet Recommendation: no restrictions on diet Weigh Patient: weekly Olivia: Not applicable Activity/Weight Bearing Restrictions: with walker, as tolerates - Labs/Radiology BMP Date: 12/19/16 Call or Fax Lab and Imaging Results to: to SNF provider - Follow Up Care Current Providers and Referrals: [place],. [Primary Care Provider] - As per Instructions
[2016-12-14 11:57] LABS: HEMOGLOBIN A1C 6.9 % (4.0-6.0)
== END 2016-12-14 14:45 | DRG 947 ==
LOC: EDUNIT# → EEVIPCON 19:26 → F3E 21:53
PROVIDERS: ADMIT Internal Medicine; ATTEND Internal Medicine
DX: R53.1 Weakness (principal); G93.40 Encephalopathy, unspecified; E87.1 Hypo-osmolality and hyponatremia; N17.9 Acute kidney failure, unspecified; E86.0 Dehydration; E83.52 Hypercalcemia; I10 Essential (primary) hypertension; E11.9 Type 2 diabetes mellitus without complications; W19.XXXA Unspecified fall, initial encounter; Y92.012 Bathroom of single-family (private) house as the place of occurrence of the external cause
CPT/HCPCS: 82397-90; 82607-90; 82652-90; 97110-GO; 97116-GP; 97161-GP; 97166-GO; 97530-GO; 97530-GP; 97535-GO; G0103; G8987-GO-CK; G8988-GO-CI; J2405

== ENCOUNTER 2019-03-11 15:09 | Emergency (ER) | payer OTHER ==
--- NOTE | 2019-03-11 15:11 | EDPHY ---
H & P Time Seen by Provider: 03/11/19 15:11 HPI/ROS: CHIEF COMPLAINT: Failure to thrive HISTORY OF PRESENT ILLNESS: The patient is brought in by police on an M1 hold secondary to grave disability. He reportedly is an elderly gentleman who has been living at his home in a state of complete disrepair. The patient's recently was found on the floor the house. She was covered in feces and has been transferred to [facility]. Please tell me they are trying to make arrangements to have the patient's house condemned as it is filled with animals, feces and trash. The patient himself has no acute complaints. The patient states he has not seen his physician in some time. He is uncertain of the medications he is currently taking. He denies fever, cough or congestion. He denies history of fall or trauma. He denies headache, numbness or weakness. REVIEW OF SYSTEMS: A comprehensive 10 point review of systems is otherwise negative aside from elements mentioned in the history of present illness. Source: Patient Exam Limitations: No limitations - Medical/Surgical History Hx Asthma: No Hx Chronic Respiratory Disease: No Hx Diabetes: Yes Hx Cardiac Disease: No Hx Renal Disease: No Hx Cirrhosis: No Hx Alcoholism: No Hx HIV/AIDS: No Hx Splenectomy or Spleen Trauma: No Other PMH: DM, hyperlipidemia, HTN - Social History Smoking Status: Never smoked - Physical Exam Exam: General Appearance: Elderly male, slightly disheveled, no acute distress Eyes: Pupils equal and round no pallor or injection ENT, Mouth: Mucous membranes moist Respiratory: There are no retractions, lungs are clear to auscultation Cardiovascular: Regular rate and rhythm Gastrointestinal: Abdomen is soft and nontender, no masses, bowel sounds normal Neurological: 5/5 strength noted all 4 extremities Skin: Warm and dry, no rashes Musculoskeletal: Neck is supple nontender Extremities: symmetrical, full range of motion Constitutional: Initial Vital Signs Temperature (C) 36.8 C 03/11/19 15:17 Heart Rate 61 03/11/19 15:17 Respiratory Rate 14 03/11/19 15:17 Blood Pressure 145/71 H 03/11/19 15:17 O2 Sat (%) 92 03/11/19 15:17 O2 Delivery Mode Room Air Allergies/Adverse Reactions: aspirin [Aspirin] Allergy (Verified 05/26/10 15:36) Home Medications: Medication Instructions Recorded Atorvastatin Calcium [Lipitor 40 40 mg PO DAILY 12/08/16 mg (*)] Herbals/Supplements -Info Only 1 ea PO DAILY 12/08/16 Acetaminophen [Tylenol 325mg (*)] 650 mg PO Q4HRS PRN #0 tab 12/14/16 Medical Decision Making ED Course/Re-evaluation: Patient presents the emergency department with failure to thrive in grave disability. The patient was living in his home completely deconditioned. The patient is nontoxic well-appearing in the ED and has no acute complaints. The patient has poor insight into his current living condition. Workup in the emergency department is not noteworthy for UTI. The patient did received ceftriaxone. The patient currently has [employer] insurance. The patient's is currently [facility]. The patient would like to be with his . I did consult with [facility] and they have accepted the patient for transfer. I have filled out the [facility] transfer form. The patient will be accepted by Dr. Collins Morgan. Differential Diagnosis: Differential diagnosis considered includes dehydration can metabolic abnormality , medication side effect, dementia, urinary tract infection, failure to thrive - Data Points Laboratory Results: Laboratory Results 03/11/19 15:30 03/11/19 15:30 03/11/19 03/11/19 03/11/19 16:05 15:30 15:30 WBC 6.38 10^3/uL 10^3/uL (3.80-9.50) RBC 4.74 10^6/uL 10^6/uL (4.40-6.38) Hgb 15.2 g/dL g/dL (13.7-17.5) Hct 44.5 % % (40.0-51.0) MCV 93.9 fL fL (81.5-99.8) MCH 32.1 pg pg (27.9-34.1) MCHC 34.2 g/dL g/dL (32.4-36.7) RDW 13.4 % % (11.5-15.2) Plt Count 222 10^3/uL 10^3/uL (150-400) MPV 11.2 fL fL (8.7-11.7) Neut % (Auto) 63.8 % % (39.3-74.2) Lymph % (Auto) 23.4 % % (15.0-45.0) Platte % (Auto) 10.5 % % (4.5-13.0) Eos % (Auto) 1.6 % % (0.6-7.6) Baso % (Auto) 0.5 % % (0.3-1.7) Nucleat RBC Rel Count 0.0 % % (0.0-0.2) Absolute Neuts (auto) 4.08 10^3/uL 10^3/uL (1.70-6.50) Absolute Lymphs (auto) 1.49 10^3/uL 10^3/uL (1.00-3.00) Absolute Monos (auto) 0.67 10^3/uL 10^3/uL (0.30-0.80) Absolute Eos (auto) 0.10 10^3/uL 10^3/uL (0.03-0.40) Absolute Basos (auto) 0.03 10^3/uL 10^3/uL (0.02-0.10) Absolute Nucleated RBC 0.00 10^3/uL 10^3/uL (0-0.01) Immature Gran % 0.2 % % (0.0-1.1) Immature Gran # 0.01 10^3/uL 10^3/uL (0.00-0.10) Sodium 138 mEq/L mEq/L (135-145) Potassium 4.6 mEq/L mEq/L (3.5-5.2) Chloride 102 mEq/L mEq/L (97-110) Carbon Dioxide 25 mEq/l mEq/l (22-31) Anion Gap 11 mEq/L mEq/L (6-14) BUN 24 mg/dL H mg/dL (7-23) Creatinine 1.6 mg/dL H mg/dL (0.7-1.3) Estimated GFR 42 Glucose 157 mg/dL H mg/dL (70-100) Calcium 9.1 mg/dL mg/dL (8.5-10.4) Creatine Kinase 53 IU/L IU/L (0-224) TSH 0.898 uIU/mL uIU/mL (0.465-4.680) Urine Color YELLOW Urine Appearance HAZY Urine pH 5.0 (5.0-7.5) Ur Specific Curtis 1.025 (1.002-1.030) Urine Protein NEGATIVE (NEGATIVE) Urine Ketones NEGATIVE (NEGATIVE) Urine Blood 1+ H (NEGATIVE) Urine Nitrate NEGATIVE (NEGATIVE) Urine Bilirubin NEGATIVE (NEGATIVE) Urine Urobilinogen 2.0 EU H EU (0.2-1.0) Ur Leukocyte Esterase 3+ H (NEGATIVE) Urine RBC 5-10 /hpf H /hpf (0-3) Urine WBC 50-182 /hpf H /hpf (0-3) Ur Epithelial Cells NONE SEEN /lpf /lpf (NONE-1+) Hyaline Casts 1-5 /lpf /lpf (0-1) Urine Mucus TRACE /lpf /lpf (NONE-1+) Urine Glucose 1+ H (NEGATIVE) Medications Given: Discontinued Medications Sodium Chloride (Ns) 1,000 mls @ 0 mls/hr IV EDNOW ONE; Wide Open PRN Reason: Protocol Stop: 03/11/19 15:50 Last Admin: 03/11/19 15:59 Dose: 1,000 mls Ceftriaxone Sodium/Dextrose (Rocephin 1 Gm (Premix)) 50 mls @ 100 mls/hr IV EDNOW ONE PRN Reason: Protocol Stop: 03/11/19 17:44 Last Admin: 03/11/19 17:35 Dose: 50 mls Departure - Departure Disposition: Acute Care Hospital Not [facility] Clinical Impression: Failure to thrive in adult, Urinary tract infection Condition: Fair Referrals: Patient,NotPresent [Primary Care Provider] - As per Instructions
[2019-03-11] MEDS ORDERED: NS 1,000 ML IV ONE (15:49)
[2019-03-11 15:59] LABS: PLATELET COUNT 222 10^3/uL (150-400)
[2019-03-11 16:02] LABS: CREATINE KINASE 53 IU/L (0-224)
[2019-03-11 18:25] VITALS: BP 127/81
--- NOTE | 2019-03-12 12:41 | ASMTCMCOM ---
CM Note CM Note Notes: Case Management, late entry: This CM met with [facility] Officer Bobby last evening when patient was brought to the ER form home. Per Officer Bobby, patient and his are currentky followed by APS and patient's APS case number is #[id number]. Patient's is currently a patient at [facility] in [place]. Both patient and his are insured through [employer]. This CM left a message with Elver Ivy, assigned APS worker last evening upom patient's arrival and recieved a call back from Elver this morning. I have confirmed open APS case with Elver and informed him that patient was transferred to [facility] last night at 8:00 PM. CM available if needed prn Date Signed: 03/12/2019 12:40 PM Electronically Signed By:Iman Latham RN
== END 2019-03-11 19:31 | disposition short-term general hospital (02) ==
LOC: EDUNIT#
DX: R62.7 Adult failure to thrive (principal); N39.0 Urinary tract infection, site not specified; E86.9 Volume depletion, unspecified; I10 Essential (primary) hypertension; E78.5 Hyperlipidemia, unspecified; E11.9 Type 2 diabetes mellitus without complications
CPT/HCPCS: 96360; 96365; 99285; J0696